=== PATIENT | female | born 1945 | race Caucasian/White ===

== ENCOUNTER → 2016-11-06 | Outpatient (CLI) | payer OTHER, BC ==
[~2016-11-06] VITALS: Ht 157.5 cm; Wt 77.1 kg
[~2016-11-06] MED LIST: ALPRAZOLAM ER1 MG PO; ALPRAZOLAM1 M1 PO; ALPRAZOLAM1 MG PO; APAP650 PO; ATACAND HCT 161 EACH PO; ATORVASTATIN CA40 MG PO; BAYER CHEWABLE81 MG PO; BAZA CR.1 E1; CALCITRIOL0.5 MCG PO; CEPACOL SORE T1 EAC8 PO; COREG6.25 MG PO; COUMADIN 5 MG TA5 M1 PO; COZAAR 50 MG TA50 M1 PO; DITROPAN XL15 MG PO; DOK100 MG PO; EFFIENT10 MG PO; LEVOXYL125 MCG PO; LEVOXYL75 MCG PO; LEVOXYL88 MCG PO; LOVENOX30 MG/0.3 SUBQ; NEPHROCAPS SOFT1 CAP PO; NORCO 5-325 TA1 EACH; NORCO 5-325 TA1 EACH PO; OMEPRAZOLE 20 M20 M1 PO; RENAL CAPS SOFTG1 MG PO; RENVELA800 MG PO; REQUIP 1 MG TABL1 M1 PO; SENNA S TABLET1 EACH PO; TEMAZEPAM15 MG PO; VANC750 IV; VITAMIN D 5050000 I1 PO; ZOLOFT100 MG PO; ZOLOFT50 MG PO; [UNRECOGNIZED DRUG - OTHER]
--- NOTE | ~2016-11-06 | HPC ---
[facility] [address] [place] [address] PAIN MANAGEMENT CONSULTATION Name: SEGUNDO TIERNEY Room #: REG Dalia Chand#: [id number] Admission: 11/06/16 Attend Phys: Jose A Murray DO Discharge: Date of : 45 Report #: [id number] THIS REPORT FOR: //name// CC: Billy Murray HISTORY OF PRESENT ILLNESS: The patient is a pleasant 71-year-old female seen in consultation at the request of Dr. Shilo Seals for evaluation of pain in the low back, right lateral thigh and leg. The patient notes symptoms began around August of this year without antecedent trauma and overuse, pain is primarily in the low back, right hip, lateral thigh, leg to her foot, exacerbated with standing, walking, and pretty much any weightbearing. She rates her pain at "10" on a 0-10 visual analog scale. She tried some physical activity, is intolerant of antinflammatory medications due to acute renal insufficiency. Taken some hydrocodone with nominal efficacy. Notes paresthesia and episodic weakness in the leg. Denies saddle anesthesia or bowel or bladder continence changes. REVIEW OF SYSTEMS: Complete review of systems is attached to the chart was gone over with the patient. She is , seen in the company of a friend who is supportive. Quit smoking years ago. Does not drink alcohol to excess. History of coronary artery disease, in fact status post acute CT with coronary angiogram and angioplasty. She developed acute renal insufficiency. She currently utilizes peritoneal dialysis nightly, Sunday through Sunday. Comorbidities include some chronic anxiety for which she takes Zoloft, gastroesophageal reflux for which she takes omeprazole. She has stopped taking Effient greater than a year ago per the patient, carvedilol for hypertension, atorvastatin for dyslipidemia, levothyroxine, Xanax 1 mg at bedtime, Requip at bedtime and Renvela for hypophosphatemia (associated with dialysis). PHYSICAL EXAMINATION: VITAL SIGNS: Reveals a 157 cm, 77 kilograms female, BMI is 31.1 kilograms per meter squared. Blood pressure is 124/69, pulse 77, respirations 16. NEUROLOGIC: Cranial nerves 2-12 are grossly intact. HEENT: Pupils equal, reactive to light and accommodation. Extraocular muscles are intact. NECK: Thyroid is modestly enlarged, no nodules noted. Upper extremity strength is preserved. HEART: Regular rhythmical without murmur. LUNGS: Clear to auscultation. EXTREMITIES: Has somewhat of a gynecoid endomorphic build. Rises from the chair using armrest. Gait is mildly antalgic favoring the right leg. Positive straight leg raise on the right. Right patellar reflex is diminished compared to the left. Right hip flexion, lower extremity extension strength is modestly diminished. [facility] [address] [place] [address] PAIN MANAGEMENT CONSULTATION Name: SEGUNDO TIERNEY Room #: REG AMAYA Chand#: [id number] Admission: 11/06/16 Attend Phys: Jose A Murray DO Discharge: Date of : 45 Report #: [id number] DIAGNOSTIC STUDIES: Reviewing MRI from 10/31/2016, we note grade 1 anterolisthesis at L4-L5 with facet arthropathy, broad-based disk bulge causing fairly severe central stenosis and bilateral neural foraminal stenosis, right greater than left. L5-S1 shows a small left facet joint effusion. ASSESSMENT: Symptomatic lumbar radiculopathy in a 71-year-old female with a history of acute renal failure on dialysis and pending renal transplant. Coronary artery disease by history. RECOMMENDATIONS: 1. The patient is unable to take nonsteroidal anti-inflammatory medications hence steroids is the next logical choice. Pain has been present for greater than 6 weeks with significant physical impact on function. Recommendation received with epidural injection under fluoroscopy today at L4-L5. To follow in 2 weeks for reevaluation. Consideration for transforaminal epidural injection if indicated clinically. Thanks for allowing me to participate in the patient's care. I will keep you abreast of her progress. PROCEDURE: Lumbar epidural injection under fluoroscopy. PROCEDURE NOTE: After both written and informed consent to include risk of spinal cord damage, increased pain, weakness and dural puncture, the patient was taken to the fluoroscopy suite, placed in the prone position. After sterile prep and drape, a skin wheal with lidocaine was raised. A 22-gauge epidural Tuohy needle was inserted in the midline at L4-L5 with good loss to resistance. Negative aspiration for cerebrospinal fluid or blood was noted. Then 1 mL of Omnipaque under biplanar fluoroscopy showed good spread within the epidural space. This was followed with 80 mg of triamcinolone plus 1 mL of 1.5% preservative-free Xylocaine, 0.5 mL Xylocaine was then injected to flush the needle; it was removed. The patient was monitored for an appropriate period of time and discharged in good and stable condition. <ELECTRONICALLY SIGNED> By: Jose A Murray DO 11/08/16 0802 1520 2047 Jose A Murray DO /nt
[2016-11-06 14:37] VITALS: BP 124/69
== END | disposition home or self-care (01) ==
LOC: PAIN 07:05
DX: M54.16 Radiculopathy, lumbar region (principal); I25.10 Atherosclerotic heart disease of native coronary artery without angina pectoris; E07.9 Disorder of thyroid, unspecified; J45.909 Unspecified asthma, uncomplicated; I25.2 Old myocardial infarction; I10 Essential (primary) hypertension; I50.9 Heart failure, unspecified; Z87.448 Personal history of other diseases of urinary system; Z95.5 Presence of coronary angioplasty implant and graft; Z87.891 Personal history of nicotine dependence

== ENCOUNTER → 2016-12-28 | Outpatient (CLI) | payer OTHER, BC | LOC: RAD 13:31 | DX: Z12.31 Encounter for screening mammogram for malignant neoplasm of breast (principal) ==

== ENCOUNTER → 2017-02-09 | Outpatient (CLI) | payer OTHER, BC ==
[~2017-02-09] VITALS: Ht 157.5 cm; Wt 78.7 kg
[~2017-02-09] MED LIST changes: +ARANESP10 MCG/0.4 IJ; +BACLOFEN 10MG T10 MG PO
--- NOTE | ~2017-02-09 | HPC ---
[facility] [address] PAIN MANAGEMENT CONSULTATION Name: TIERNEYSEGUNDO Theodora Room #: REG AMAYA Chand#: [id number] Admission: 02/09/17 Attend Phys: Jose A Murray DO Discharge: Date of : 45 Report #: [id number] THIS REPORT FOR: //name// CC: Shilo Murray The patient is a 72-year-old female, seen in consultation on 11/06/2016, diagnosed with symptomatic lumbar radiculopathy. Proceeded with a L4-L5 epidural injection under fluoroscopy. She notes near 100% resolution of the right radicular leg pain, still have some ongoing pain in the right low back. She is a dialysis patient with chronic renal failure, unable to take nonsteroidal anti-inflammatory medications. The patient notes tenderness in the right low back preventing ambulation. PHYSICAL EXAMINATION: Shows lower extremity strength generally symmetric. Linsey test is nominally positive on the right, but very tender in the right lumbar paravertebral and overlying latissimus dorsi muscle with multiple trigger points noted. ASSESSMENT: Myofascial pain, right lower extremity, lumbar radiculopathy by history, relatively significantly improved radicular pain relief after epidural steroid injection. RECOMMENDATIONS: 1. Trigger point injections times 2 today. 2. Baclofen 10 mg t.i.d. to q.i.d. as needed for muscle spasm. 3. Follow up in 2 weeks for reevaluation and consideration for repeat epidural injection under fluoroscopy if indicated for neurogenic claudication symptoms. Thank you for allowing me to participate in the patient's care. PROCEDURE NOTE: After written informed consent was obtained, the patient was placed in prone position. Skin overlying the trigger points in the right lumbar paravertebral muscle and overlying inferior latissimus dorsi were identified. Using a 25-gauge needle, 20 mg triamcinolone plus 3 mL of 0.5% preservative-free bupivacaine plus 3 mL of 1.5% preservative-free Xylocaine with 1:20,000 epinephrine was injected into and around the trigger points. Needle was removed, the area was cleansed, Band-Aids applied. The patient was monitored for an appropriate period of time, discharged in good and stable condition. <ELECTRONICALLY SIGNED> By: Jose A Murray DO 02/12/17 0856 1350 1542 Jose A Murray DO /nt
[2017-02-09 13:13] VITALS: BP 114/67
== END | disposition home or self-care (01) ==
LOC: PAIN 07:00
DX: M79.1 Myalgia (principal); M54.16 Radiculopathy, lumbar region; N18.9 Chronic kidney disease, unspecified; Z99.2 Dependence on renal dialysis; Z87.891 Personal history of nicotine dependence

== ENCOUNTER 2017-11-27 10:11 | Inpatient (IN) | payer OTHER, BC ==
[~2017-11-27] VITALS: Ht 157.5 cm; Wt 81.6 kg
--- NOTE | ~2017-11-27 | HC ---
[facility] [place] [address] CONSULTATION Name: SEGUNDO TIERNEY Room #: 241-P [facility] IN M.R.#: [id number] Admission: 11/27/17 Attend Phys: Henrry Morgan DO Discharge: 12/06/17 Date of : 45 Report #: [id number] THIS REPORT FOR: //name// CC: Henrry Lao Box DATE OF SERVICE: 11/27/2017 ATTENDING PHYSICIAN: Hospitalist Service. REASON FOR CONSULTATION: End-stage renal disease. HISTORY OF PRESENT ILLNESS: The patient followed by us in the PD clinic with end-stage renal disease on peritoneal dialysis for several years. Over the last couple of months she developed a periumbilical abscess possibly involving the tunnel for her peritoneal dialysis catheter. She had a left arm fistula placed. She has undergone several rounds of Augmentin based antibiotics for her periumbilical abscess, which has been controlled, but not cured. She has developed gastroesophageal reflux and swallowing symptoms, which had become severe. Now she has developed exertional dyspnea and epigastric pain with exertion causing her to have to sit down with any exertion at all. She does have a history of coronary artery disease with previous stent placement and previous myocardial infarction. PAST MEDICAL HISTORY: End-stage renal disease, history of hypertension, coronary artery disease as mentioned. FAMILY HISTORY: Noncontributory. SOCIAL HISTORY: No cigarettes or alcohol. Lives by herself. REVIEW OF SYSTEMS: GENERAL: She has been having trouble. EYES: Her vision has been okay. ENT: Hearing okay, swallows okay. No mouth sores or ulcers. ENDOCRINE: No diabetes or thyroid disease. RESPIRATORY: No shortness of breath or pleuritic pain. CARDIAC: She is having this epigastric discomfort and weakness with exertion. GASTROINTESTINAL: No nausea or vomiting, but lots of gastroesophageal and epigastric pain. GENITOURINARY: Making very little urine. NEUROLOGIC: No seizure, syncope or stroke, but she has been somewhat weak. PHYSICAL EXAMINATION: GENERAL: Somewhat chronically ill-appearing woman, in no acute distress. SKIN: Unremarkable. [facility] [address] [place] [address] CONSULTATION Name: SEGUNDO TIERNEY Theodora Room #: 241-P DIS IN M.R.#: [id number] Admission: 11/27/17 Attend Phys: Henrry Morgan DO Discharge: 12/06/17 Date of : 45 Report #: [id number] SKELETAL: Somewhat overweight. HEENT: Extraocular movements are full. No scleral icterus. Hearing and vision intact. Mucous membranes slightly dry. NECK: Veins are flat. CHEST: Clear. HEART: Regular. ABDOMEN: Soft and nontender. There is a small periumbilical erythematous swelling with a little bit of drainage and discharge. EXTREMITIES: Show no edema. The PD catheter is in place. ASSESSMENT AND PLAN: 1. End-stage renal disease. We will continue her peritoneal dialysis as her left arm fistula matures. 2. Exertional dyspnea and epigastric discomfort. This may well all be GI, but I am a little worried about an anginal equivalent, especially with her history of coronary artery disease. 3. Periumbilical abscess, treated by Dr. Hartman. 4. New left arm fistula. 5. Gastroesophageal reflux, on Protonix. I am a little worried about Lisha esophagitis due to all of her antibiotics that she has been on. Fluconazole for a few days. <ELECTRONICALLY SIGNED> By: Billy Marsh MD 12/17/17 1051 1115 1244 Billy Marsh MD /nt
--- NOTE | ~2017-11-27 | EKG ---
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
--- NOTE | ~2017-11-27 | DEA ---
[facility] [place] [address] SUMMARY Name: SEGUNDO TIERNEY Room #: 241-P DIS IN M.R.#: [id number] Admission: 11/27/17 Attend Phys: Henrry Morgan DO Discharge: 12/06/17 Date of : 45 Report #: [id number] THIS REPORT FOR: //name// CC: Henrry Lao Box DATE OF SERVICE: 12/06/2017 DATE AND TIME OF : 12/06/2017 at 1402. HOSPITAL COURSE: The patient is a 72-year-old female who is postop day #3 status post coronary artery bypass grafting, also had a peripheral dialysis port infection, end-stage renal disease, coronary artery disease, anemia of chronic disease. The patient has been doing well postop, was participating with therapy, getting stronger. Unfortunately, she suddenly declined and became unresponsive. The patient was coded, but did not respond to heroic efforts. The family did decide on stopping the heroic efforts, and she was pronounced at the above date and time. <ELECTRONICALLY SIGNED> By: Henrry Morgan DO 12/20/17 0855 0841 1013 Henrry Morgan DO /nt
--- NOTE | ~2017-11-27 | O ---
[facility] [place] [address] OPERATIVE REPORT Name: SEGUNDO TIERNEY Room #: 212-P [facility] IN M.R.#: [id number] Admission: 11/27/17 Attend Phys: Henrry Morgan DO Discharge: Date of : 45 Report #: [id number] THIS REPORT FOR: //name// CC: Henrry Seals DATE OF SERVICE: 11/29/2017 PREOPERATIVE DIAGNOSES: 1. Infected peritoneal dialysis catheter. 2. Infraumbilical abscess with overlying skin necrosis. 3. Morbid obesity. 4. Coronary artery disease. 5. End-stage renal disease necessitating dialysis. 6. Anxiety with depression. 7. Gastroesophageal reflux disease. 8. Hypothyroidism. 9. Hyperlipidemia. POSTOPERATIVE DIAGNOSES: 1. Infected peritoneal dialysis catheter. 2. Infraumbilical abscess with overlying skin necrosis. 3. Morbid obesity. 4. Coronary artery disease. 5. End-stage renal disease necessitating dialysis. 6. Anxiety with depression. 7. Gastroesophageal reflux disease. 8. Hypothyroidism. 9. Hyperlipidemia. PROCEDURES PERFORMED: 1. Removal of an infected peritoneal dialysis catheter. 2. Debridement of an infraumbilical necrotic wound ultimately measuring 2 x 2 cm in dimension, carried through skin, subcutaneous tissue and muscle/fascia. Preoperative wound measurements were 2 x 2 cm as well as the overall dimensions did not change substantially. This involved unroofing of an underlying abscess as well. SURGEON: Junior Sheth M.D. [employer] SALES REPRESENTATIVE: Medical student. ANESTHESIA: Local anesthesia. ESTIMATED BLOOD LOSS: Minimal (less than 2 mL). [facility] [address] [place] [address] OPERATIVE REPORT Name: TIERNEYSEGUNDO Room #: 212-P [facility] IN M.R.#: [id number] Admission: 11/27/17 Attend Phys: Henrry Morgan DO Discharge: Date of : 45 Report #: [id number] COMPLICATIONS: None appreciated. SPECIMENS: 1. Culture swabs x 2 to microbiology. 2. PD catheter to microbiology. INDICATIONS: The patient is a 72-year-old obese female who is being evaluated for chest pain and necessitates 4-vessel CABG. She does have end-stage renal disease and utilizes peritoneal dialysis, but unfortunately has a grossly infected peritoneal dialysis catheter with a necrotic infraumbilical wound and an underlying abscess. As such, indication was for removal of the catheter as well as debridement of the wound to remove all infectious tissue. DESCRIPTION OF PROCEDURE: After explaining the risks, benefits and alternatives of the procedure with the patient in detail in the preoperative holding area and obtaining written consent, the patient was brought to the operating room and placed supine on the operating room table. After conducting a thorough timeout procedure verifying correct patient and procedure, the patient's abdomen was prepped and draped in standard surgical sterile fashion. The patient's SCDs were hooked up to pneumatic compression device and she was already on an inpatient regimen of IV antibiotic therapy, which is all in line with the SCIP protocol. 20 mL of bicarbonate buffered 0.5% Marcaine with epinephrine were used to anesthetize the skin in the infraumbilical location as well as along the peritoneal dialysis catheter tract. A #15 bladed scalpel was used to create a 1.5 cm curvilinear incision in the infraumbilical location. Electrocautery was used to carry this down through skin and subcutaneous tissues and the overlying necrotic skin fell apart upon handling it and as such, this was debrided back through skin, subcutaneous tissue and muscle fascia all the way down to the depths of the wound where we encountered an overt abscess for which culture swabs were taken and sent to microbiology. I continued debridement with electrocautery, circumferentially carried this to the depths of the wound until we had vascularized healthy tissue throughout. This allowed me to free the Dacron cuff from the abdominal wall fascia. I then elevated the peritoneal dialysis catheter in the wound, used suture scissors to cut it in half and removed the intraperitoneal portion. I then dissected the subcutaneous portion free with electrocautery and removed this through the skin incision in the left lateral abdomen and this was passed off the field for microbiologic analysis as well. I now continued debridement back to healthy tissue throughout and at the completion, the wound was 2 x 2 cm and was healthy and vascularized. I then irrigated the wound copiously. I used an 0 PDS suture in [id number] fashion to close the fascial defect from the peritoneal catheters entry into the abdomen. I then packed the wound open with iodoform gauze and dressed it with 4 x 4s, ABDs and Medipore tape. At the end of the procedure, all instrument, needle and sponge counts were correct. The patient tolerated the procedure [address] [address] OPERATIVE REPORT Name: NIALLSEGUNDO Yip Room #: 212-P ADM IN M.R.#: [id number] Admission: 11/27/17 Attend Phys: Henrry Morgan, Discharge: Date of : 45 Report #: [id number] without incident, was awakened in the operating room and transitioned to the recovery room in stable condition with no apparent complications. <ELECTRONICALLY SIGNED> By: Junior Sheth MD, FACS 11/30/17 0931 1633 1651 Junior Sheth MD, FACS /nt
--- NOTE | ~2017-11-27 | CATHLAB ---
[facility] [place] [address] INVASIVE PROCEDURE REPORT Name: SEGUNDO TIERNEY Room #: 212-P ADM IN ..#: [id number] Admission: 11/27/17 Attend Phys: Henrry Morgan, Discharge: Date of : 45 Date of Service: 11/30/17 1839 Report #: [id number] THIS REPORT FOR: //name// APPROVED REPORT Study performed: 11/28/2017 08:21:21 Patient Details Patient Status: In-Patient Room #: The patient is a 72 year-old female Event Personnel Billy Roe Teradata Developer, Tima Ayala RN, Skyla Lundberg RTR, IRMA Castellanos, Dominick Duarte Monitor Procedures Performed Right and Left Heart Cath w/or w/o Coronarie [id number] [facility] Aortogram Abdominal Peripheral Angio [id number] Indication Abnormal ECG Procedure Narrative The Right Groin^ was infiltrated with 1% Lidocaine subcutaneous anesthesia. A PINNACLE 6FR Sheath #[id number] sheath was inserted into the . Coronary angiography was performed using coronary diagnostic catheters. The right coronary system was accessed and visualized with a JR4 catheter. The left coronary system was accessed and visualized with a JL4 catheter. The left ventricle was accessed and visualized with a PIGTAIL catheter. Left ventricular/Aortic Valve gradient assessed via catheter pullback. Left ventriculogram was performed in 30 degree projection. An aortogram of the abdominal aorta was performed. Hemostasis was obtained with manual pressure following sheath removal without any complications. There was no hematoma. Intraoperative Conscious Sedation Sedation start time: 9.20 Case end Time: 9.46 Fentanyl 25 mcg Versed 0.5 mg Fluoro Time: 5722.00 minutes Dose: 572 mGy Contrast Type and Amount: Visipaque 90 ml [facility] [place] [address] INVASIVE PROCEDURE REPORT Name: SEGUNDO TIERNEY Room #: 212-P [facility] IN ..#: [id number] Admission: 11/27/17 Attend Phys: Henrry Morgan, Discharge: Date of : 45 Date of Service: 11/30/17 1839 Report #: [id number] Hemodynamics The right atrial mean pressure is 17 mmHg. The right ventricular pressure is 41/12 mmHg. The pulmonary artery pressure is 40/15 mmHg with a mean of 25 mmHg. The mean pulmonary capillary wedge pressure is 4 mmHg. The aortic pressure is 106/52 mmHg with a mean of 72 mmHg. The left ventricular pressure is 103/15 mmHg with a mean of mmHg. The left ventricular end diastolic pressure is 28 mmHg. There was no gradient across the aortic valve upon pullback. Pullback from the left ventricle to the aorta revealed no gradient across the aortic valve. Conclusion #1 successful right heart catheterization with cardiac output by thermodilution see above hemodynamics. #2 normal left jugular size and systolic function EF 60-65% #3 abdominal aorta is intact with diffuse disease no aneurysm formation extensive calcification noted in the abdominal aorta #4 left main free of disease giving rise to LAD and circumflex #5 high-grade subtotal proximal LAD just off of the left main lesion with a high-grade 90% mid LAD lesion otherwise a preserved distal vessel with moderate calcification #6 circumflex OM with an ostial disease 30-40% proximal large OM branch well-preserved proximal calcification is noted #7 large dominant right coronary artery mid vessel stent widely patent. Distal third is a high-grade 90% eccentric lesion a second more distal lesion 95% proximal to the bifurcation of preserved PDA DEEPTHI Recommendations and plan. This is a dialysis patient. There are reasonably well preserved distal targets around multiple areas of high-grade disease. LV function is preserved. Normal right-sided heart pressures are noted. This patient is best served with revascularization by bypass surgery. Transfer to CCU for CV surgical consultation. <ELECTRONICALLY SIGNED> By: Billy Roe MD, FACC 11/30/171838 38 38 Billy Roe MD, FACC /INF
--- NOTE | ~2017-11-27 | HC ---
[facility] [place] [address] CONSULTATION Name: SEGUNDO TIERNEY Room #: 241-P [facility] IN M.R.#: [id number] Admission: 11/27/17 Attend Phys: Henrry Morgan DO Discharge: 12/06/17 Date of : 45 Report #: [id number] THIS REPORT FOR: //name// CC: Henrry Lao Box DATE OF SERVICE: 12/04/2017 HISTORY OF PRESENT ILLNESS: The patient is a 72-year-old white female admitted with epigastric pain, periumbilical abscess. The patient has a history of end-stage renal disease and was premorbidly on peritoneal dialysis. She was diagnosed with a peritoneal dialysis port infection. She underwent removal with debridement of the necrotic wound on 11/29/2017. During her postoperative period, she was further evaluated with severe coronary artery disease and now has undergone coronary artery bypass grafting x 3 on 12/03/2017. She is continuing in the Intensive Care Unit. Nephrology is following with end-stage renal disease, on hemodialysis. We are seeing her again in rehabilitation medicine consultation. PAST MEDICAL HISTORY: Includes coronary artery disease with prior cardiac stenting, history of end-stage renal disease, previously on peritoneal dialysis, history of morbid obesity, hyperlipidemia, anemia of chronic disease, hypothyroidism, and hypertension. MEDICATIONS: Please see the full medication listing. SOCIAL HISTORY: Lives in a house alone, was premorbidly ambulatory and independent without gait aids. Noted to be a . She has extended family. She was driving premorbidly. REVIEW OF SYSTEMS: No current complaints of chest pain or shortness of breath or abdominal discomfort. No focal extremity pain complaints. PHYSICAL EXAMINATION: GENERAL: A 72-year-old white female in no obvious distress. She is in the Intensive Care Unit. VITAL SIGNS: Last recorded temperature 37.6, pulse 83, respirations 16, blood pressure 111/82. NEUROLOGIC: She is alert. She has the facemask in place and was just recently extubated. Her ICU nurse notes that she was on multiple pressors and these have been decreased. She has the chest tubes in place. 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 No calf swelling. Appears appropriate. ASSESSMENT: A 72-year-old white female with the following problem list: [address] [address] CONSULTATION Name: SEGUNDO TIERNEY Room #: 241-P [facility] IN ..#: [id number] Admission: 11/27/17 Attend Phys: Henrry Moragn DO Discharge: 12/06/17 Date of : 45 Report #: [id number] 1. Medical complexity with generalized debilitation. 2. Coronary artery disease, now status post coronary artery bypass grafting x 3 on 12/03/2017. 3. Peritoneal dialysis port infection, now status post removal with debridement of necrotic wound, 11/29/2017. 4. End-stage renal disease, previously on peritoneal dialysis, now on hemodialysis. 5. Hypertension. 6. Obesity. 7. Anemia of chronic disease. 8. Hypothyroidism. PLAN: PT and OT are to evaluate as she further medically stabilizes. We will be glad to assist regarding her rehab therapy needs and we will be glad to follow along with you. <ELECTRONICALLY SIGNED> By: Dominick Ferguson MD 12/19/17 1454 1613 0500 Dominick Ferguson MD /PMT
--- NOTE | ~2017-11-27 | HC ---
[facility] [place] [address] CONSULTATION Name: SEGUNDO TIERNEY Room #: 212-P ADM IN M.R.#: [id number] Admission: 11/27/17 Attend Phys: Henrry Morgan DO Discharge: Date of : 45 Report #: [id number] THIS REPORT FOR: //name// CC: Billy Roe MD [facility] Billy Seals MD DATE OF SERVICE: 11/27/2017 GASTROINTESTINAL CONSULTATION REASON FOR CONSULTATION: The patient is a 72-year-old woman with multiple medical problems and upper abdominal pain and chest pain. HISTORY OF PRESENT ILLNESS: This patient has a history of multiple problems including coronary artery disease with previous stent placement and also end-stage renal disease, which developed after her myocardial infarction. She has been on peritoneal dialysis, but recently has had problems with umbilical abscess. She has had a shunt placed, which is maturing at this time with plans to switch her hemodialysis on a short-term basis to allow healing of her peritonitis. From a GI standpoint, she states that she has not had GI problems in the past; however, she is taking ranitidine and omeprazole. However, in the past several weeks, she has been taking fluconazole on an every other day basis and she holds her omeprazole on the days she takes the fluconazole. This past weekend, she developed some burning chest discomfort which was quite intense. She has not had any nausea, vomiting, hematemesis. She presented to the Emergency Room and was admitted for further evaluation. There has been no dysphagia. She does take an aspirin daily, but otherwise does not use nonsteroidal products. She says she has not had previous upper endoscopy. She has had a colonoscopy in the past, which was done by my associate, Dr. Bosch in May 2014. Three small polyps were identified. He recommended repeating colonoscopy in 5 years. Also, she has not had any rectal bleeding. It is noted that she has been on Augmentin and prednisone. PAST MEDICAL HISTORY: She has hypothyroidism, chronic kidney disease, on peritoneal dialysis, she has an umbilical abscess, coronary artery disease, she has also been treated for depression and anxiety. PAST SURGICAL HISTORY: Hysterectomy, cholecystectomy, surgery for small bowel obstruction and appendectomy. [address] [address] CONSULTATION Name: NIALLSEGUNDO Room #: 212-P [facility] IN .R.#: [id number] Admission: 11/27/17 Attend Phys: Henrry Morgan DO Discharge: Date of : 45 Report #: [id number] ALLERGIES: INCLUDE SULFA, ADHESIVE TAPE, PENICILLIN, AND MIRAPEX. USUAL HOME MEDICATIONS: Alprazolam 1 mg nightly, aspirin 81 mg daily, Lipitor 40 mg daily, baclofen 10 mg 3 times daily, calcitriol 0.5 mg twice daily, Coreg 6.25 mg twice daily, Aricept 10 mcg injection twice monthly, docusate 100 mg twice daily, vitamin D 50,000 units, hydrocodone as needed, levothyroxine 0.125 mg daily, omeprazole 20 mg daily, except past several weeks has been every other day, ReQuip 2 mg at bedtime, sertraline 100 mg daily, Renvela 2 tablets 3 times daily, and vitamin B complex. Also, she recently has been on fluconazole and also ranitidine. FAMILY HISTORY: No family history of colon cancer or ulcer disease. SOCIAL HISTORY: She smoked a little bit as a teenager, otherwise does not smoke. She does not consume much alcohol. REVIEW OF SYSTEMS: GENERAL: No change in weight, fever or chills. CENTRAL NERVOUS SYSTEM: No focal weakness, numbness, loss of consciousness, seizures or strokes. ENT: No change in vision, hearing or sores in the mouth. PULMONARY: She gets short of breath, no pneumonia or tuberculosis. CARDIOVASCULAR: Known coronary artery disease. GASTROINTESTINAL: No nausea, vomiting, no hematemesis, no rectal bleeding. GENITOURINARY: Chronic kidney disease, on peritoneal dialysis. GYNECOLOGIC: Previous hysterectomy. No breast problems. MUSCULOSKELETAL: Chronic back pain for which she takes hydrocodone. SKIN: She has pruritus. PSYCHIATRIC: Treated for depression, anxiety. ENDOCRINE: She has hypothyroidism, but no diabetes. HEMATOLOGIC: No bleeding, bruising or malignancies. PHYSICAL EXAMINATION: GENERAL: The patient is well-developed, well-nourished, overweight woman in no acute distress. VITAL SIGNS: Blood pressure 128/62, pulse 78. HEENT: Anicteric. Pupils equal and round. Oropharynx clear. NECK: Supple. CHEST: Clear. HEART: Regular rate and rhythm, normal S1 and normal S2. ABDOMEN: Obese, normal bowel sounds, soft, nontender, without hepatosplenomegaly or masses. RECTAL: Not done. EXTREMITIES: Without cyanosis, clubbing or edema. NEUROLOGIC: Alert and oriented to person, place and time. Moves all 4 extremities well. [facility] [address] [place] [address] CONSULTATION Name: SEGUNDO TIERNEY Room #: 212-P ADM IN M.R.#: [id number] Admission: 11/27/17 Attend Phys: Henrry Morgan DO Discharge: Date of : 45 Report #: [id number] LABORATORY DATA: White count of 15.2, hemoglobin 11, platelet count of 228,000. Electrolytes unremarkable. Creatinine 11.3, BUN of 45. Liver function studies are normal. C-reactive protein 9.4, albumin 3.0. ASSESSMENT: 1. Chest pain, questionably related to reflux disease. 2. Coronary artery disease with previous stent. 3. Shortness of breath. 4. Chronic kidney disease, peritoneal dialysis, transition to hemodialysis on a short-term basis. 5. Peritonitis. 6. Umbilical abscess. 7. Thrush. Her symptoms developed while she was taking omeprazole and ranitidine. LFTs were normal. She has had previous cholecystectomy. Cardiovascular plans noted regarding the nuclear stress test. PLAN: 1. Cardiovascular evaluation planned. 2. If etiology chest pain is not entirely clear after cleared from a cardiovascular standpoint, upper endoscopy may be indicated. <ELECTRONICALLY SIGNED> By: Noble Jones MD 11/28/17 1759 1955 2343 Noble Jones MD /nt
--- NOTE | ~2017-11-27 | EKG ---
[place] [address] [facility] [place] [address] ELECTROCARDIOGRAM REPORT Name: SEGUNDO TIERNEY Room #: 170-5 ADM IN M.R.#: [id number] Admission: 11/27/17 Attend Phys: Henrry Morgan DO Discharge: Date of : 45 Report #: [id number] THIS REPORT FOR: //name// [facility] ED Test Date: 2017-11-27 Test Time: 10:15:32 Pat Name: SEGUNDO TIERNEY Department: Room: 170 Gender: F Cloth Spreader: RENETTA : 1945 Requested By: Benton Valle Order Number: [id number] MD: Lit Herrera Measurements Intervals [place] Rate: 80 P: 7 WA: 166 QRS: -19 QRSD: 105 T: 94 QT: 394 QTc: 455 Interpretive Statements Sinus rhythm Borderline left axis deviation Low voltage, precordial leads Abnrm T, anterolateral lds Compared to ECG 11/08/2013 22:08:43 Low QRS voltage now present T-wave abnormality is now present Electronically Signed On 11-27-2017 12:30:42 CDT by Lit Herrera [email or web address] <ELECTRONICALLY SIGNED> By: Lit Herrera MD, [facility] 11/27/17 1230 1015 1015 Lit Herrera MD, [facility] /EPI
--- NOTE | ~2017-11-27 | HC ---
[facility] [place] [address] CONSULTATION Name: SEGUNDO TIERNEY Room #: 150-19 ADM IN M.R.#: [id number] Admission: 11/27/17 Attend Phys: Henrry Morgan DO Discharge: Date of : 45 Report #: [id number] THIS REPORT FOR: //name// CC: Henrry Seals DATE OF SERVICE: 11/30/2017 WOUND CARE CONSULTATION PERSONAL PHYSICIAN: Shilo Seals MD CHIEF COMPLAINT: Abdominal wall wound. HISTORY OF PRESENT ILLNESS: This is a 72-year-old white female, who is scheduled to have coronary artery bypass grafting in the next few days, who recently had an infected peritoneal dialysis catheter removed. The patient was left with an open wound to the abdominal wall, which I have been asked to assist in the care. The patient does complain of mild pain around the incisional site. The patient denies any other associated wounds that she could not heal on her own. The patient presented through the Emergency Department for chest pain, which led to the diagnosis of multivessel coronary artery disease. PAST MEDICAL HISTORY: Significant for coronary artery disease, hypertension, end-stage renal disease on hemodialysis, history of small bowel obstruction, gastroesophageal reflux disease, hyperlipidemia and obesity. CURRENT MEDICATIONS: Multiple, I reviewed the patient's medication list. DRUG ALLERGIES: SULFA, BACLOFEN, PENICILLIN, ADHESIVES AND MIRAPEX. SOCIAL HISTORY: The patient does not smoke or drink alcohol. FAMILY HISTORY: Not pertinent to current medical condition. REVIEW OF SYSTEMS: CONSTITUTIONAL: The patient denies fevers or chills. NEUROLOGIC: Overall, generalized weakness, but no isolated weakness in arms or legs. EYES: No complaints. ENT: No complaints. CARDIAC: The patient has chest pain with associated coronary artery disease, but no palpitations or peripheral edema. RESPIRATORY: The patient denies shortness of breath, cough or wheezes. GASTROINTESTINAL: The patient denies nausea, vomiting or abdominal pain. GENITOURINARY: The patient denies urgency or frequency. [facility] [address] [place] [address] CONSULTATION Name: SEGUNDO TIERNEY Room #: 150-19 ADM IN ..#: [id number] Admission: 11/27/17 Attend Phys: Henrry Morgan DO Discharge: Date of : 45 Report #: [id number] MUSCULOSKELETAL: No complaints. SKIN: There is a surgical wound in the abdominal wall x 2 from the infected peritoneal dialysis catheter removal. PHYSICAL EXAMINATION: VITAL SIGNS: Temperature 36.6, pulse 72, respiratory rate 18, BP 106/46. GENERAL: This is an alert and oriented x 3, pleasant white female who is in no obvious distress. HEENT: Normocephalic, atraumatic. Mucous membranes are dry. Pupils are round. Sclerae white. NECK: Shows no obvious JVD, otherwise supple. LUNGS: Clear. HEART: Regular, without murmur. ABDOMEN: Soft. Mild tenderness noted around the infraumbilical wound, which is fairly clean and granulating. To the left of this wound is the catheter site, which is a small incision which tracks over to the larger wound. The wound itself was once again fairly clean, granulating with the periwound otherwise intact without signs of actual cellulitis at this time. EXTREMITIES: The patient moves all extremities without difficulty. NEUROLOGIC: Cranial nerves 2-12 are grossly intact. Motor and sensory are grossly intact. LABORATORY VALUES: White count 11.8, hemoglobin 9.5. Sed rate 108, albumin 2.2. WOUND CARE COURSE: The patient has previously had iodoform packing placed within both of these wounds. The lateral wound is so small and narrow. We will hold off on any further packing at this time. This should heal well without aggressive packing. We will place an Optifoam dressing over the top of this. The infraumbilical wound will be packed with Aquacel Ag and then covered with a foam border dressing. This will be changed Sunday, Sunday and Sunday. We will make sure we maximize the patient's oral protein supplementation as allowed per her renal diet. The patient is scheduled for coronary artery bypass surgery on Sunday morning. We will continue to follow the patient while she is here in the hospital. IMPRESSION: 1. Infraumbilical surgical wound status post removal of infected peritoneal dialysis catheter. 2. End-stage renal disease, on hemodialysis. 3. Coronary artery disease with scheduled coronary artery bypass grafting in 3 days. 4. Generalized debility. [address] [address] CONSULTATION Name: NIALLSEGUNDO Room #: 150-19 ADM IN M.R.#: [id number] Admission: 11/27/17 Attend Phys: Henrry Morgan DO Discharge: Date of : 45 Report #: [id number] PLAN: Described in length as above. We will continue to follow the patient. <ELECTRONICALLY SIGNED> By: Haresh Reid MD 12/03/17 0932 1410 1835 Haresh Reid MD /nt
--- NOTE | ~2017-11-27 | HC ---
[facility] [place] [address] CONSULTATION Name: SEGUNDO TIERNEY Room #: 212-P ADM IN M.R.#: [id number] Admission: 11/27/17 Attend Phys: Henrry Morgan DO Discharge: Date of : 45 Report #: [id number] THIS REPORT FOR: //name// CC: Henrry Morgan Shilo Box DATE OF SERVICE: 11/29/2017 REFERRING PROVIDER: Billy Marsh MD. REASON FOR CONSULTATION: Infected peritoneal dialysis catheter. HISTORY OF PRESENT ILLNESS: The patient is a 72-year-old morbidly obese female known to me from a prior bowel obstruction several years ago who was recently admitted through the Emergency Room with substernal chest pain radiating through to the back. The patient has been evaluated from a cardiac standpoint showing significant multivessel coronary artery disease for which Cardiothoracic Surgery has evaluated the patient and recommended surgical revascularization. The patient does have a history of chronic renal failure for which she has had peritoneal dialysis catheter in place for 4 years, having been revised on 1 prior occasion several years ago. Unfortunately, the patient has an area of marked erythema with overlying skin necrosis in the infraumbilical location and has significant pain throughout the course of her peritoneal dialysis catheter tract through the abdominal wall. As such, I am asked to evaluate for removal as this is grossly infected and she has a leukocytosis with need for a more temporary access for hemodialysis and to prepare for cardiac surgery. PAST MEDICAL HISTORY: Significant for coronary artery disease, hypertension, end-stage renal disease on dialysis, prior small-bowel obstruction, anxiety with depression, GERD, hypothyroidism, hyperlipidemia and obesity. HOME MEDICATIONS: Requip, carvedilol, folic acid, vitamin B, Renvela, cholecalciferol, [place], Xanax, Synthroid, aspirin, Lipitor, Colace, calcitriol, Zoloft and omeprazole. ALLERGIES: SULFA, BACLOFEN, PENICILLIN, PRAMIPEXOLE AND ADHESIVES. SOCIAL HISTORY: The patient does not utilize tobacco, alcohol or illicit drugs. FAMILY HISTORY: Reviewed and noncontributory. REVIEW OF SYSTEMS: GENERAL: The patient denies nocturnal fevers or chills. HEENT: No change in vision, change in hearing. NECK: No swelling or difficulty swallowing. HEART: Significant for chest pain, but no palpitations. [address] [address] CONSULTATION Name: SEGUNDO TIERNEY Theodora Room #: 212-P [facility] IN M.R.#: [id number] Admission: 11/27/17 Attend Phys: Henrry Morgan DO Discharge: Date of : 45 Report #: [id number] LUNGS: No cough or shortness of breath. ABDOMEN: No nausea, no vomiting. GENITOURINARY: No dysuria or hematuria. ENDOCRINE: No polyuria, polydipsia. HEMATOLOGIC: No history of bleeding or easy bruising. EXTREMITIES: No history of weakness or limited range of motion. NEUROLOGIC: No history of syncope or near syncopal episodes. SKIN AND INTEGUMENT: No other history of abnormal lesions or moles. PSYCHIATRIC: Positive for anxiety and depression. PHYSICAL EXAMINATION: VITAL SIGNS: Temperature 98.6, pulse 70, respirations 16, blood pressure 112/54. Height 5 feet 2 inch tall and weighs 169 pounds. GENERAL: Alert and oriented, in no acute distress. HEENT: Normocephalic, atraumatic. Pupils equal, round, reactive to light. NECK: Supple, without lymphadenopathy. Trachea midline. HEART: Regular rate and rhythm. LUNGS: Clear to auscultation bilaterally. GASTROINTESTINAL: Abdomen is obese, soft, nondistended. She is tender to palpation overlying her peritoneal dialysis catheter with an area of erythema and skin necrosis in the infraumbilical location. GENITOURINARY: Normal external female genitalia. EXTREMITIES: No clubbing, cyanosis or edema. NEUROLOGIC: Cranial nerves 2-12 are grossly intact. PSYCHIATRIC: Normal mood and affect. SKIN AND INTEGUMENT: No other abnormal lesions or moles. LABORATORY AND X-RAY DATA: CBC shows white blood cell count of 14,400, hemoglobin 10.9, platelets 228,000. Creatinine is 10.6. CT scan of the abdomen and pelvis was reviewed showing no acute findings. ASSESSMENT AND PLAN: A 72-year-old morbidly obese female with coronary artery disease being evaluated for a coronary artery bypass graft who has an obviously infected peritoneal dialysis catheter with an abscess and skin necrosis in the infraumbilical location. A thorough discussion was held with the patient and we will proceed today for removal of this catheter as per the request of Infectious Disease and Nephrology. Risks, benefits and alternatives of that have been discussed with the patient in detail and she agrees to proceed as outlined. I will keep her n.p.o. at this time. She will continue antibiotics per the direction of Infectious Disease and we will proceed to the operating room at the first available opportunity. [facility] [address] [place] [address] CONSULTATION Name: SEGUNDO TIERNEY Room #: 212-P ADM IN M.R.#: [id number] Admission: 11/27/17 Attend Phys: Henrry Morgan DO Discharge: Date of : 45 Report #: [id number] I sincerely appreciate this consult. We will follow along and leave any further recommendations in the patient's chart as appropriate. <ELECTRONICALLY SIGNED> By: Junior Sheth MD, FACS 11/30/17 0931 1628 1944 Junior Sheth MD, FACS /nt
--- NOTE | ~2017-11-27 | HC ---
[facility] [place] [address] CONSULTATION Name: SEGUNDO TIERNEY Room #: 212-P [facility] IN M.R.#: [id number] Admission: 11/27/17 Attend Phys: Henrry Morgan DO Discharge: Date of : 45 Report #: [id number] THIS REPORT FOR: //name// CC: Henrry Morgan Shilo Box DATE OF SERVICE: 11/27/2017 ATTENDING PHYSICIAN: Dr. Roe. REASON FOR CONSULTATION: Naval infection. HISTORY OF PRESENT ILLNESS: A 72-year-old white woman who is admitted with history of exertional chest pain in upper chest, radiating to upper extremities and back. The possibility of esophageal pathology is entertained by Dr. Marsh and Diflucan for possible yeast esophagitis was prescribed. The patient is evaluated by Dr. Jones who may perform EGD if cardiovascular workup is negative. The patient specifically denies painful swallowing or significant gastroesophageal discomfort at the present time. She has been on treatment for gastroesophageal reflux disease. PAST MEDICAL HISTORY: Hypothyroidism. Chronic kidney disease, she is on peritoneal dialysis. History of coronary artery disease, status post coronary artery stenting. Status post hysterectomy, cholecystectomy, appendectomy and small-bowel obstruction. DRUG ALLERGIES: SULFA, PENICILLIN, BACLOFEN, PRAMIPEXOLE. MEDICATIONS: She is currently on treatment with docusate, mineral oil petrolatum topical, aspirin, atorvastatin, multivitamin, cinacalcet, carvedilol, sevelamer, levothyroxine, pantoprazole, hydrocortisone topical, ropinirole, Benadryl, mupirocin topical and gentamicin topical to navel. She is on polyethylene glycol, sublingual nitroglycerin p.r.n., ondansetron p.r.n., Diflucan single dose 150 mg p.o. SOCIAL HISTORY: See H and P and old records. FAMILY HISTORY: See H and P and old records. REVIEW OF SYSTEMS: Noncontributory besides what has been stated above. PHYSICAL EXAMINATION: GENERAL: Well developed, nontoxic-looking woman. VITAL SIGNS: Afebrile, pulse 77, respirations 14, BP 181/45, 114/45. HEENMT: Within range. NECK: Supple, no thyromegaly. [address] [address] CONSULTATION Name: SEGUNDO TIERNEY Room #: 212-P [facility] IN M.R.#: [id number] Admission: 11/27/17 Attend Phys: Henrry Morgan DO Discharge: Date of : 45 Report #: [id number] LUNGS: Basilar crackles. HEART: S1, S2. No gallop. ABDOMEN: Soft, no masses or megaly. PELVIC AND RECTAL: Deferred. EXTREMITIES: No clubbing, cyanosis. NEUROLOGIC: Grossly within normal limits. LABORATORY DATA: Sodium 138, potassium 3.7, BUN 46, creatinine 11.2. WBC 15.2, hemoglobin 11 g/dL, platelets 228,000. White blood cell count fairly normal. Urinalysis pending. RADIOLOGY EVALUATION: A CT scan of abdomen and pelvis reviewed with the patient and family. No obvious abscess detected. Atrophic kidneys. Chest x-ray revealed no acute process. ASSESSMENT: 1. Exertional chest pain, suspect angina pectoris. 2. Coronary artery disease, status post previous coronary artery stenting. 3. Superficial navel infection, no evidence of abscess clinically. 4. Chronic renal failure, on peritoneal dialysis. 5. Chronic pruritus secondary to above. 6. Left arm AV fistula, not matured. SUGGESTIONS: Suspect Dr. Roe may proceed with cardiac catheterization since she has exertional chest pain and shortness of breath, suspect strongly we are dealing with angina pectoris. As far as the navel infection is concerned, I suspect this is a superficial infection and topical Bactroban and gentamicin cream or ointment will take care of the problem. Dr. Morgan, thank you for requesting my suggestions. <ELECTRONICALLY SIGNED> By: Rocco Chung MD 11/29/17 0946 1137 1402 Rocco Chung MD /nt
--- NOTE | ~2017-11-27 | 2DMMODE ---
[facility] [place] [address] 2 D/M-MODE ECHOCARDIOGRAM Name: SEGUNDO TIERNEY Room #: 241-P ADM IN M.R.#: [id number] Admission: 11/27/17 Attend Phys: Henrry Morgan, Discharge: Date of : 45 Date of Service: 12/05/17 1433 Report #: [id number] THIS REPORT FOR: //name// APPROVED REPORT Study performed: 12/05/2017 13:01:29 EXAM: Comprehensive 2D, Doppler, and color-flow Echocardiogram Patient Location: ICU Room #: 241 Status: routine BSA: 1.85 HR: 93 bpm BP: 102/62 mmHg Other Information Study Quality: FairTechnically Limited Technically limited study due to CABG, post operative dressings, inability to position patient, body habitus. Indications CAD Hypertension/HDD S^P CABG X2 Days Left Ventricle The left ventricle is normal size. There is normal left ventricular wall thickness. The overall left ventricular systolic function appears normal. LVEF is 55-60%. This study is not technically sufficient to allow evaluation of the LV diastolic function. Right Ventricle Right ventricle is at the upper limits of normal. Right ventricle appears hypokinetic. Atria Left atrium is not well visualized. Right atrium is not well visualized. Aortic Valve The aortic valve is not well visualized. Mitral Valve The mitral valve is normal in structure. [facility] [address] [address] 2 D/M-MODE ECHOCARDIOGRAM Name: SEGUNDO TIERNEY Room #: 241-P ADM IN M.R.#: [id number] Admission: 11/27/17 Attend Phys: Henrry Morgan, Discharge: Date of : 45 Date of Service: 12/05/17 143 Report #: [id number] Tricuspid Valve Tricuspid valve is not well visualized. Pulmonic Valve Pulmonic valve is not well visualized. Great Vessels Aortic root is not well visualized. Pericardium There is no pericardial effusion. <Conclusion> The left ventricle is normal size. The overall left ventricular systolic function appears normal. LVEF is 55-60%. This study is not technically sufficient to allow evaluation of the LV diastolic function. Right ventricle is at the upper limits of normal. Right ventricle appears hypokinetic. Left atrium is not well visualized. The aortic valve is not well visualized. The mitral valve is normal in structure. Tricuspid valve is not well visualized. Aortic root is not well visualized. There is no pericardial effusion. <ELECTRONICALLY SIGNED> By: Billy Roe MD, FACC 12/05/17 143 32 1433 Billy Roe MD, FACC /INF
--- NOTE | ~2017-11-27 | DEA ---
[facility] [place] [address] SUMMARY Name: SEGUNDO TIERNEY Room #: 241-P DIS IN M.R.#: [id number] Admission: 11/27/17 Attend Phys: Henrry Morgan DO Discharge: 12/06/17 Date of : 45 Report #: [id number] THIS REPORT FOR: //name// CC: Henrry Morgan Shilo Box DATE OF SERVICE: 12/06/2017 ADDENDUM: Need to correct the date of service and date of to 12/06/2017 not 12/07/2017. <ELECTRONICALLY SIGNED> By: Henrry Morgan DO 12/20/17 0855 1222 1234 Henrry Morgan DO /nt
--- NOTE | ~2017-11-27 | EKG ---
[address] [address] ELECTROCARDIOGRAM REPORT Name: NIALLSEGUNDO Yip Room #: 241-P ADM IN M.R.#: [id number] Admission: 11/27/17 Attend Phys: Henrry Morgan DO Discharge: Date of : 45 Report #: [id number] THIS REPORT FOR: //name// [facility] Test Date: 2017-12-05 Test Time: 15:14:41 Pat Name: SEGUNDO TIERNEY Department: Room: 241 P Gender: F [employer] Operator: Karina RICCI : 1945 Requested By: Swapna Sewell Order Number: [id number] MD: Tuan Chung Measurements Intervals [place] Rate: 87 P: AL: QRS: 127 QRSD: 172 T: -14 QT: 428 QTc: 515 Interpretive Statements Atrial fibrillation RBBB and LPFB Compared to ECG 12/04/2017 07:51:13 Left posterior fascicular block now present Sinus rhythm no longer present Electronically Signed On 12-05-2017 17:19:13 CDT by Tuan Chung [email or web address] <ELECTRONICALLY SIGNED> By: Tuan Chung MD 12/05/17 1719 1514 1514 Tuan Chung MD /EPI
[2017-11-27 10:21] VITALS: BP 81/45
[2017-11-27 10:47] LABS: BASOPHILS 0.7 % (0.0-2.0); EOSINOPHILS 9.9 % (0.0-3.0); LYMPHOCYTES 14.5 % (24.0-44.0); MCH 33.4 pg (26.0-34.0); MCHC 32.2 g/dL (28.0-37.0); MCV 103.5 fL (80.0-100.0); MONOCYTES 9.1 % (1.0-8.0); PLATELET COUNT 228 thou/uL (150-400); POLYS 65.8 % (36.0-66.0); RBC 3.28 mil/uL (4.20-5.00); RDW 17.2 % (10.5-14.5); WBC 15.2 thou/uL (4.0-11.0)
[2017-11-27 12:11] VITALS: BP 114/45
[2017-11-27 12:25] LABS: ANION GAP 19 mmol/L (7-16); BUN 45 mg/dL (7-18); CALCIUM 8.8 mg/dL (8.5-10.1); CHLORIDE 100 mmol/L (98-107); CO2 22 mmol/L (21-32); CREATININE 11.3 mg/dL (0.6-1.0); GLUCOSE 96 mg/dL (74-106); POTASSIUM 4.3 mmol/L (3.5-5.1); SGOT 34 U/L (15-37); SGPT 7 U/L (30-65); TOTAL BILIRUBIN 0.4 mg/dL (<0.1-1.0); TOTAL PROTEIN 7.3 g/dL (6.4-8.2); TROPONIN-I < 0.04 ng/mL (<0.06)
[2017-11-27 12:26] LABS: SODIUM 141 mmol/L (136-145)
[2017-11-27 15:11] VITALS: BP 128/62
[2017-11-27 15:46] LABS: CHOLESTEROL 139 mg/dL (<200); HDL CHOLESTEROL 46 mg/dL (>40); LDL CHOLESTEROL 44 mg/dL (<100); TRIGLYCERIDE 249 mg/dL (<150); VLDL 50 mg/dL (<40)
[2017-11-27 15:47] LABS: SERUM ASSESSMENT Clear
[2017-11-27 16:11] LABS: TSH 8.374 uIU/mL (0.358-3.740)
[2017-11-27 21:40] VITALS: BP 93/51
[2017-11-27] MEDS ORDERED: VITAMIN D1000 UNI1 PO (21:47)
[2017-11-28 03:04] VITALS: BP 116/56
[2017-11-28 06:32] LABS: ABSOLUTE NEUTROPHILS 7.6 thou/uL (1.4-8.2); BASOPHILS 0.8 % (0.0-2.0); EOSINOPHILS 11.4 % (0.0-3.0); HEMATOCRIT 32.9 % (37.0-47.0); HEMOGLOBIN 10.6 gm/dL (12.0-15.0); LYMPHOCYTES 17.8 % (24.0-44.0); MCH 33.5 pg (26.0-34.0); MCHC 32.3 g/dL (28.0-37.0); MCV 103.5 fL (80.0-100.0); MONOCYTES 8.7 % (1.0-8.0); PLATELET COUNT 217 thou/uL (150-400); POLYS 61.3 % (36.0-66.0); RBC 3.18 mil/uL (4.20-5.00); RDW 17.2 % (10.5-14.5); WBC 12.4 thou/uL (4.0-11.0)
[2017-11-28 06:45] LABS: CALCIUM 9.2 mg/dL (8.5-10.1); CREATININE 11.2 mg/dL (0.6-1.0); POTASSIUM 3.7 mmol/L (3.5-5.1)
[2017-11-28 07:28] VITALS: BP 116/50
[2017-11-28 10:30] VITALS: BP 99/54
[2017-11-28 16:00] VITALS: BP 99/60
[2017-11-28 16:12] LABS: HEPATITIS B SURFACE AG Negative (Negative)
[2017-11-28 19:45] VITALS: BP 92/62
[2017-11-29 03:10] LABS: GLYCOHEMOGLOBIN (HGB A1C) 5.7 % (4.8-5.6)
[2017-11-29 03:49] LABS: CALCIUM 9.1 mg/dL (8.5-10.1); CREATININE 10.6 mg/dL (0.6-1.0); POTASSIUM 3.8 mmol/L (3.5-5.1)
[2017-11-29 04:07] LABS: ABSOLUTE NEUTROPHILS 9.6 thou/uL (1.4-8.2); BASOPHILS 0.4 % (0.0-2.0); EOSINOPHILS 9.7 % (0.0-3.0); HEMATOCRIT 33.6 % (37.0-47.0); HEMOGLOBIN 10.9 gm/dL (12.0-15.0); LYMPHOCYTES 15.8 % (24.0-44.0); MCH 33.6 pg (26.0-34.0); MCHC 32.5 g/dL (28.0-37.0); MCV 103.3 fL (80.0-100.0); MONOCYTES 7.5 % (1.0-8.0); PLATELET COUNT 228 thou/uL (150-400); POLYS 66.6 % (36.0-66.0); RBC 3.26 mil/uL (4.20-5.00); RDW 17.2 % (10.5-14.5); WBC 14.4 thou/uL (4.0-11.0)
[2017-11-29 04:45] VITALS: BP 97/53
[2017-11-29 07:09] VITALS: BP 112/54
[2017-11-29 11:20] VITALS: BP 120/52
[2017-11-29 15:53] VITALS: BP 101/58
[2017-11-29 19:45] VITALS: BP 88/44
[2017-11-30 03:52] LABS: ABSOLUTE NEUTROPHILS 7.8 thou/uL (1.4-8.2); BASOPHILS 0.6 % (0.0-2.0); EOSINOPHILS 10.3 % (0.0-3.0); HEMATOCRIT 28.8 % (37.0-47.0); HEMOGLOBIN 9.5 gm/dL (12.0-15.0); LYMPHOCYTES 14.5 % (24.0-44.0); MCH 34.1 pg (26.0-34.0); MCHC 33.1 g/dL (28.0-37.0); MCV 103.1 fL (80.0-100.0); MONOCYTES 9.1 % (1.0-8.0); PLATELET COUNT 169 thou/uL (150-400); POLYS 65.5 % (36.0-66.0); RBC 2.79 mil/uL (4.20-5.00); RDW 16.4 % (10.5-14.5); WBC 11.8 thou/uL (4.0-11.0)
[2017-11-30 04:10] LABS: ALBUMIN 2.2 g/dL (3.4-5.0); CALCIUM 7.7 mg/dL (8.5-10.1); PHOSPHORUS 5.3 mg/dL (2.5-4.9); POTASSIUM 4.2 mmol/L (3.5-5.1)
[2017-11-30 04:14] LABS: CREATININE 11.9 mg/dL (0.6-1.0)
[2017-11-30 04:45] VITALS: BP 107/59
[2017-11-30 11:52] VITALS: BP 106/46
[2017-11-30 16:06] VITALS: BP 97/46
[2017-11-30 20:20] VITALS: BP 107/50
[2017-11-30 21:08] LABS: GLYCOHEMOGLOBIN (HGB A1C) 5.6 % (4.8-5.6)
[2017-12-01 03:59] VITALS: BP 108/54
[2017-12-01 04:30] LABS: ALBUMIN 2.4 g/dL (3.4-5.0); CALCIUM 8.1 mg/dL (8.5-10.1); CREATININE 12.8 mg/dL (0.6-1.0); PHOSPHORUS 4.9 mg/dL (2.5-4.9); POTASSIUM 4.8 mmol/L (3.5-5.1)
[2017-12-01 07:41] VITALS: BP 109/50
[2017-12-01 11:42] VITALS: BP 103/58
[2017-12-01 13:19] LABS: APTT 31.2 Seconds (24.5-32.8); PROTIME 10.1 Seconds (9.3-11.4)
[2017-12-01 15:06] VITALS: BP 111/55
[2017-12-01 16:53] LABS: APTT 32.1 Seconds (24.5-32.8); PROTIME 10.4 Seconds (9.3-11.4)
[2017-12-02 04:30] VITALS: BP 131/109
[2017-12-02 08:53] VITALS: BP 87/45
[2017-12-02 13:12] VITALS: BP 99/43
[2017-12-02 14:05] LABS: HEMATOCRIT 27.6 % (37.0-47.0); HEMOGLOBIN 9.1 gm/dL (12.0-15.0); MCHC 32.9 g/dL (28.0-37.0); MCV 103.4 fL (80.0-100.0); RBC 2.67 mil/uL (4.20-5.00); RDW 16.8 % (10.5-14.5); WBC 12.2 thou/uL (4.0-11.0)
[2017-12-02 14:26] LABS: ALBUMIN 2.4 g/dL (3.4-5.0); CALCIUM 8.4 mg/dL (8.5-10.1); POTASSIUM 4.4 mmol/L (3.5-5.1); TOTAL BILIRUBIN 0.2 mg/dL (<0.1-1.0); TOTAL PROTEIN 6.7 g/dL (6.4-8.2)
[2017-12-02 14:28] LABS: CREATININE 8.5 mg/dL (0.6-1.0)
[2017-12-02 16:35] VITALS: BP 121/53
[2017-12-02 19:50] VITALS: BP 113/49
[2017-12-03] VITALS (9 sets, daily range): BP systolic 76–148; BP diastolic 47–107
[2017-12-03 04:18] LABS: ABSOLUTE NEUTROPHILS 8.6 thou/uL (1.4-8.2); BASOPHILS 0.4 % (0.0-2.0); EOSINOPHILS 10.1 % (0.0-3.0); HEMATOCRIT 26.1 % (37.0-47.0); HEMOGLOBIN 8.6 gm/dL (12.0-15.0); LYMPHOCYTES 12.7 % (24.0-44.0); MCH 34.1 pg (26.0-34.0); MCHC 32.8 g/dL (28.0-37.0); MCV 103.9 fL (80.0-100.0); MONOCYTES 8.9 % (1.0-8.0); PLATELET COUNT 165 thou/uL (150-400); POLYS 67.9 % (36.0-66.0); RBC 2.51 mil/uL (4.20-5.00); RDW 16.8 % (10.5-14.5); WBC 12.6 thou/uL (4.0-11.0)
[2017-12-03 04:25] LABS: CALCIUM 8.4 mg/dL (8.5-10.1); CREATININE 9.3 mg/dL (0.6-1.0); POTASSIUM 4.9 mmol/L (3.5-5.1)
[2017-12-03 13:54] LABS: MCH 32.3 pg (26.0-34.0); MCHC 32.2 g/dL (28.0-37.0); MCV 100.2 fL (80.0-100.0); RBC 2.01 mil/uL (4.20-5.00); RDW 18.6 % (10.5-14.5); WBC 21.9 thou/uL (4.0-11.0)
[2017-12-03 14:01] LABS: HEMATOCRIT 20.2 % (37.0-47.0); HEMOGLOBIN 6.5 gm/dL (12.0-15.0)
[2017-12-03 14:15] LABS: APTT 35.2 Seconds (24.5-32.8); FIBRINOGEN 238.7 mg/dL (210-360); INR 1.7; PROTIME 16.9 Seconds (9.3-11.4)
[2017-12-03 15:18] LABS: MCH 31.8 pg (26.0-34.0); MCHC 32.8 g/dL (28.0-37.0); MCV 96.8 fL (80.0-100.0); RBC 2.89 mil/uL (4.20-5.00); RDW 18.8 % (10.5-14.5); WBC 23.2 thou/uL (4.0-11.0)
[2017-12-03 15:19] LABS: HEMOGLOBIN 9.2 gm/dL (12.0-15.0)
[2017-12-03 15:32] LABS: APTT 33.8 Seconds (24.5-32.8); FIBRINOGEN 220.3 mg/dL (210-360); INR 1.3; PROTIME 13.5 Seconds (9.3-11.4)
[2017-12-03 16:42] LABS: POC BE -2 mmol/L (-2.0 to +3.0); POC CA IONIZED 3.6 mg/dL (4.5-5.3); POC GLUCOSE 127 mg/dL (70-99); POC HCO3 23.9 mmol/L (22.0-26.0); POC HEMOGLOBIN 6.8 g/dL (12.0-15.0); POC POTASSIUM 5.9 mmol/L (3.5-5.1); POC SODIUM 132 mmol/L (136-145); POC pCO2 43.5 mmHg (35.0-45.0); POC pH 7.349 (7.360-7.450)
[2017-12-03 16:42] LABS: POC BE -4 mmol/L (-2.0 to +3.0); POC CA IONIZED 4.1 mg/dL (4.5-5.3); POC GLUCOSE 185 mg/dL (70-99); POC HCO3 22.2 mmol/L (22.0-26.0); POC HEMOGLOBIN 8.8 g/dL (12.0-15.0); POC POTASSIUM 4.5 mmol/L (3.5-5.1); POC SODIUM 139 mmol/L (136-145); POC pCO2 46.1 mmHg (35.0-45.0); POC pH 7.291 (7.360-7.450)
[2017-12-03 16:42] LABS: POC BE 5 mmol/L (-2.0 to +3.0); POC CA IONIZED 3.7 mg/dL (4.5-5.3); POC GLUCOSE 102 mg/dL (70-99); POC HCO3 28.5 mmol/L (22.0-26.0); POC HEMOGLOBIN 5.8 g/dL (12.0-15.0); POC POTASSIUM 5.7 mmol/L (3.5-5.1); POC SODIUM 133 mmol/L (136-145); POC pH 7.471 (7.360-7.450)
[2017-12-03 16:42] LABS: POC BE 2 mmol/L (-2.0 to +3.0); POC CA IONIZED 3.8 mg/dL (4.5-5.3); POC GLUCOSE 78 mg/dL (70-99); POC HCO3 24.6 mmol/L (22.0-26.0); POC HEMOGLOBIN 6.8 g/dL (12.0-15.0); POC POTASSIUM 4.3 mmol/L (3.5-5.1); POC SODIUM 136 mmol/L (136-145); POC pCO2 29.6 mmHg (35.0-45.0); POC pH 7.528 (7.360-7.450)
[2017-12-03 16:42] LABS: POC BE -7 mmol/L (-2.0 to +3.0); POC CA IONIZED 4.2 mg/dL (4.5-5.3); POC GLUCOSE 127 mg/dL (70-99); POC HCO3 18.8 mmol/L (22.0-26.0); POC HEMOGLOBIN 6.8 g/dL (12.0-15.0); POC POTASSIUM 4.9 mmol/L (3.5-5.1); POC SODIUM 137 mmol/L (136-145); POC pCO2 36.2 mmHg (35.0-45.0); POC pH 7.324 (7.360-7.450)
[2017-12-03 16:42] LABS: POC BE -4 mmol/L (-2.0 to +3.0); POC CA IONIZED 3.8 mg/dL (4.5-5.3); POC GLUCOSE 100 mg/dL (70-99); POC HCO3 21.2 mmol/L (22.0-26.0); POC HEMOGLOBIN 6.1 g/dL (12.0-15.0); POC POTASSIUM 5.3 mmol/L (3.5-5.1); POC SODIUM 133 mmol/L (136-145); POC pCO2 37.3 mmHg (35.0-45.0); POC pH 7.362 (7.360-7.450)
[2017-12-03 16:42] LABS: POC BE -1 mmol/L (-2.0 to +3.0); POC CA IONIZED 3.7 mg/dL (4.5-5.3); POC GLUCOSE 117 mg/dL (70-99); POC HCO3 23.6 mmol/L (22.0-26.0); POC HEMOGLOBIN 6.8 g/dL (12.0-15.0); POC POTASSIUM 6.2 mmol/L (3.5-5.1); POC SODIUM 132 mmol/L (136-145); POC pCO2 35.8 mmHg (35.0-45.0); POC pH 7.427 (7.360-7.450)
[2017-12-03 16:42] LABS: POC BE 2 mmol/L (-2.0 to +3.0); POC CA IONIZED 3.7 mg/dL (4.5-5.3); POC GLUCOSE 163 mg/dL (70-99); POC HEMOGLOBIN 6.8 g/dL (12.0-15.0); POC POTASSIUM 5.6 mmol/L (3.5-5.1); POC SODIUM 133 mmol/L (136-145); POC pCO2 46.3 mmHg (35.0-45.0); POC pH 7.373 (7.360-7.450)
[2017-12-03 16:42] LABS: POC BE -1 mmol/L (-2.0 to +3.0); POC GLUCOSE 89 mg/dL (70-99); POC HCO3 24.3 mmol/L (22.0-26.0); POC HEMOGLOBIN 7.1 g/dL (12.0-15.0); POC POTASSIUM 4.4 mmol/L (3.5-5.1); POC SODIUM 135 mmol/L (136-145); POC pCO2 42.9 mmHg (35.0-45.0); POC pH 7.362 (7.360-7.450)
[2017-12-03 16:50] LABS: HEMATOCRIT 35.1 % (37.0-47.0); MCH 31.8 pg (26.0-34.0); MCHC 33.1 g/dL (28.0-37.0); MCV 96.1 fL (80.0-100.0); RBC 3.65 mil/uL (4.20-5.00); RDW 18.6 % (10.5-14.5); WBC 26.5 thou/uL (4.0-11.0)
[2017-12-03 16:54] LABS: HEMOGLOBIN 11.6 gm/dL (12.0-15.0)
[2017-12-03 17:05] LABS: APTT 27.3 Seconds (24.5-32.8); INR 1.3; PROTIME 12.8 Seconds (9.3-11.4)
[2017-12-03 17:11] LABS: CALCIUM 7.8 mg/dL (8.5-10.1); MAGNESIUM 2.6 mg/dL (1.8-2.4)
[2017-12-03 17:18] LABS: CREATININE 8.1 mg/dL (0.6-1.0)
[2017-12-03 17:19] LABS: POTASSIUM 6.1 mmol/L (3.5-5.1)
[2017-12-03 17:20] LABS: BE(vivo) -8.4 mmol/L (-2 to +3); PCO2 46.8 mmHg (35.0-45.0); PO2 68.3 mmHg (80.0-100.0); sO2 90.1 % (92.0-98.0)
[2017-12-03 17:21] LABS: pH 7.227 (7.360-7.450)
[2017-12-03 18:47] LABS: BE(vivo) -6.2 mmol/L (-2 to +3); HCO3 19.2 mmol/L (22.0-26.0); PCO2 37.9 mmHg (35.0-45.0); PO2 92.8 mmHg (80.0-100.0); pH 7.323 (7.360-7.450); sO2 96.6 % (92.0-98.0)
[2017-12-04] VITALS (54 sets, daily range): BP systolic 68–135; BP diastolic 39–89
[2017-12-04 02:23] LABS: BE(vivo) 0.6 mmol/L (-2 to +3); PCO2 38.9 mmHg (35.0-45.0); PO2 68.6 mmHg (80.0-100.0); pH 7.425 (7.360-7.450); sO2 94.2 % (92.0-98.0)
[2017-12-04 02:39] LABS: HEMATOCRIT 32.3 % (37.0-47.0); MCH 32.2 pg (26.0-34.0); MCHC 34.1 g/dL (28.0-37.0); MCV 94.4 fL (80.0-100.0); RBC 3.43 mil/uL (4.20-5.00); RDW 18.3 % (10.5-14.5); WBC 19.6 thou/uL (4.0-11.0)
[2017-12-04 02:45] LABS: CALCIUM 8.1 mg/dL (8.5-10.1); MAGNESIUM 1.8 mg/dL (1.8-2.4)
[2017-12-04 02:47] LABS: POTASSIUM 3.9 mmol/L (3.5-5.1)
[2017-12-04 02:48] LABS: CREATININE 2.8 mg/dL (0.6-1.0)
[2017-12-04 12:18] LABS: ALBUMIN 3.2 g/dL (3.4-5.0); CREATININE 3.6 mg/dL (0.6-1.0); PHOSPHORUS 3.4 mg/dL (2.5-4.9); POTASSIUM 4.2 mmol/L (3.5-5.1)
[2017-12-04 15:11] LABS: BE(vivo) -0.2 mmol/L (-2 to +3); HCO3 23.9 mmol/L (22.0-26.0); PCO2 36.8 mmHg (35.0-45.0); PO2 63.1 mmHg (80.0-100.0); sO2 92.9 % (92.0-98.0)
[2017-12-04 16:22] LABS: BE(vivo) -0.1 mmol/L (-2 to +3); HCO3 24.2 mmol/L (22.0-26.0); PCO2 38.3 mmHg (35.0-45.0); PO2 78.4 mmHg (80.0-100.0); pH 7.419 (7.360-7.450); sO2 95.8 % (92.0-98.0)
[2017-12-05] VITALS (71 sets, daily range): BP systolic 48–116; BP diastolic 28–74
[2017-12-05 04:37] LABS: HEMATOCRIT 25.4 % (37.0-47.0); MCHC 33.2 g/dL (28.0-37.0); MCV 96.4 fL (80.0-100.0); RBC 2.63 mil/uL (4.20-5.00); RDW 18.4 % (10.5-14.5); WBC 26.2 thou/uL (4.0-11.0)
[2017-12-05 04:45] LABS: HEMOGLOBIN 8.4 gm/dL (12.0-15.0)
[2017-12-05 05:55] LABS: ALBUMIN 2.6 g/dL (3.4-5.0); CALCIUM 8.9 mg/dL (8.5-10.1); PHOSPHORUS 5.1 mg/dL (2.5-4.9); POTASSIUM 4.9 mmol/L (3.5-5.1)
[2017-12-05 05:57] LABS: CREATININE 4.9 mg/dL (0.6-1.0)
[2017-12-06] VITALS (31 sets, daily range): BP systolic 70–109; BP diastolic 36–71
[2017-12-06 05:19] LABS: HEMATOCRIT 23.5 % (37.0-47.0); HEMOGLOBIN 7.7 gm/dL (12.0-15.0); MCHC 32.6 g/dL (28.0-37.0); MCV 98.1 fL (80.0-100.0); PLATELET COUNT 152 thou/uL (150-400); RBC 2.39 mil/uL (4.20-5.00); RDW 18.1 % (10.5-14.5); WBC 22.9 thou/uL (4.0-11.0)
[2017-12-06 05:26] LABS: ALBUMIN 2.3 g/dL (3.4-5.0); CREATININE 4.6 mg/dL (0.6-1.0); MAGNESIUM 2.2 mg/dL (1.8-2.4); PHOSPHORUS 5.3 mg/dL (2.5-4.9); POTASSIUM 4.6 mmol/L (3.5-5.1)
[2017-12-06 06:12] LABS: ABSOLUTE NEUTROPHILS 19.5 thou/uL (1.4-8.2); ANISOCYTOSIS 2+; METAMYELOCYTES 1 %; MYELOCYTES 2 %; NUCLEATED RBCS 1 /100WBC; POLYCHROMASIA 1+
== END 2017-12-06 14:02 | DRG 907 ==
LOC: ER 10:11 → EROBS 11:35 → 4W 11:35 → 2N 11-28 10:33 → TBA 12-03 07:49 → ICU 12-03 16:37
PROVIDERS: Anesthesiology; Emergency Medicine; Family Medicine; Internal Medicine Nephrology; Nurse Practitioner; Nurse Practitioner Family; Registered Nurse; Surgery; Thoracic Surgery (Cardiothoracic Vascular Surgery)
PROC: 4A023N7 Measurement of Cardiac Sampling and Pressure, Left Heart, Percutaneous Approach (ICD-10-PCS; principal; 2017-11-30)
PROC: B216YZZ Fluoroscopy of Right and Left Heart using Other Contrast (ICD-10-PCS; principal; 2017-11-30)
PROC: B310YZZ Fluoroscopy of Thoracic Aorta using Other Contrast (ICD-10-PCS; principal; 2017-11-30)
PROC: B215YZZ Fluoroscopy of Left Heart using Other Contrast (ICD-10-PCS; principal; 2017-11-30)
PROC: 5A1D70Z Performance of Urinary Filtration, Intermittent, Less than 6 Hours Per Day (ICD-10-PCS; principal; 2017-11-30)
PROC: 02HV33Z Insertion of Infusion Device into Superior Vena Cava, Percutaneous Approach (ICD-10-PCS; principal; 2017-11-30)
PROC: B410YZZ Fluoroscopy of Abdominal Aorta using Other Contrast (ICD-10-PCS; principal; 2017-11-30)
PROC: B211YZZ Fluoroscopy of Multiple Coronary Arteries using Other Contrast (ICD-10-PCS; principal; 2017-11-30)
PROC: 0KBL0ZZ Excision of Left Abdomen Muscle, Open Approach (ICD-10-PCS; principal; 2017-11-30)
PROC: B5181ZA Fluoroscopy of Superior Vena Cava using Low Osmolar Contrast, Guidance (ICD-10-PCS; principal; 2017-11-30)
PROC: 0WPGX3Z Removal of Infusion Device from Peritoneal Cavity, External Approach (ICD-10-PCS; principal; 2017-11-30)
PROC: B548ZZA Ultrasonography of Superior Vena Cava, Guidance (ICD-10-PCS; principal; 2017-11-30)
PROC: 02100Z9 Bypass Coronary Artery, One Artery from Left Internal Mammary, Open Approach (ICD-10-PCS; 2017-12-03)
PROC: 5A02210 Assistance with Cardiac Output using Balloon Pump, Continuous (ICD-10-PCS; 2017-12-03)
PROC: 30233N1 Transfusion of Nonautologous Red Blood Cells into Peripheral Vein, Percutaneous Approach (ICD-10-PCS; 2017-12-03)
PROC: 06BQ4ZZ Excision of Left Saphenous Vein, Percutaneous Endoscopic Approach (ICD-10-PCS; 2017-12-03)
PROC: 021109W Bypass Coronary Artery, Two Arteries from Aorta with Autologous Venous Tissue, Open Approach (ICD-10-PCS; 2017-12-03)
PROC: 5A1935Z Respiratory Ventilation, Less than 24 Consecutive Hours (ICD-10-PCS; 2017-12-03)
PROC: B548ZZA Ultrasonography of Superior Vena Cava, Guidance (ICD-10-PCS; 2017-12-05)
PROC: 02HV33Z Insertion of Infusion Device into Superior Vena Cava, Percutaneous Approach (ICD-10-PCS; 2017-12-05)
DX: T85.71XA Infection and inflammatory reaction due to peritoneal dialysis catheter, initial encounter (principal); K65.1 Peritoneal abscess; N18.6 End stage renal disease; E43 Unspecified severe protein-calorie malnutrition; K65.9 Peritonitis, unspecified; B37.81 Candidal esophagitis; B37.0 Candidal stomatitis; L03.90 Cellulitis, unspecified; D62 Acute posthemorrhagic anemia; I25.119 Atherosclerotic heart disease of native coronary artery with unspecified angina pectoris; K21.9 Gastro-esophageal reflux disease without esophagitis; E03.9 Hypothyroidism, unspecified; F32.9 Major depressive disorder, single episode, unspecified; F41.9 Anxiety disorder, unspecified; I77.0 Arteriovenous fistula, acquired; E78.5 Hyperlipidemia, unspecified; E66.01 Morbid (severe) obesity due to excess calories; E78.00 Pure hypercholesterolemia, unspecified; I65.29 Occlusion and stenosis of unspecified carotid artery; I48.0 Paroxysmal atrial fibrillation; I95.9 Hypotension, unspecified; R60.9 Edema, unspecified; D69.6 Thrombocytopenia, unspecified; D63.8 Anemia in other chronic diseases classified elsewhere; D72.829 Elevated white blood cell count, unspecified; M19.90 Unspecified osteoarthritis, unspecified site; Z60.2 Problems related to living alone; Z95.5 Presence of coronary angioplasty implant and graft; Z88.0 Allergy status to penicillin; Z88.2 Allergy status to sulfonamides; Z88.8 Allergy status to other drugs, medicaments and biological substances; Z87.891 Personal history of nicotine dependence; Z90.710 Acquired absence of both cervix and uterus; Z90.49 Acquired absence of other specified parts of digestive tract; Z68.32 Body mass index [BMI] 32.0-32.9, adult; Z79.82 Long term (current) use of aspirin; Z79.899 Other long term (current) drug therapy
CPT/HCPCS: 10045; 10078; 10081; 32100; 32110; 47000; 47001; 47002; 47297; 47382; 48888; 50011; 50101; 50249; 50310; 50386; 50409; 50497; 50668; 51301; 52131; 52259; 52314; 53327; 53358; 54118; 55340; 55415; 56524; 56525; 56526; 56527; 56528; 56529; 56531; 56534; 56639; 56668; 56760; 56898; 57092; 57093; 62110; 62950; 64029; 65002; 65003; 65020; 65043; 65090; 65120; 83006